=== PATIENT | female | born 1950 | race Two or more races ===

== ENCOUNTER 2021-04-02 07:02 | Day surgery (SDC) | payer MEDICARE ==
[~2021-04-02] VITALS: Ht 156.2 cm; Wt 77.5 kg
[~2021-04-02 07:02] MED LIST: ACETAMINOPHEN 500 MG TABLET PO ONE; ATOR10TA60 PO; CITA10TA4 PO; HYDROmorphone 2 MG/ML VIAL IVP PRN; IV RINGERS,LACTATED 1000ML 1,000 ML IV SCH; LISI10TA16 PO; METF500T16 PO; MORPHINE SULFATE 2 MG/ML INJ. IVP PRN; OLME1TAB23 PO; PROCHLORPERAZINE 10 MG/2 ML VIAL. IVP PRN; ceFAZolin SODIUM IV Push 1 GM VIAL. IVP ONE; fentaNYL PF VIAL 100 MCG/2 ML VIAL IVP PRN; vitamin D
[2021-04-02] MEDS ORDERED: INSULIN LISPRO 100 UNIT/ML 3ML VIAL for OP,RR ONLY. SQ PRN (07:15)
[2021-04-02 07:34] VITALS: BP 182/77
[2021-04-02] MEDS ORDERED: fentaNYL PF VIAL 100 MCG/2 ML VIAL ONE ×2 (08:18→10:22)
[2021-04-02] MEDS ORDERED: ROCURONIUM 50 MG/5 ML VIAL. ONE (08:18)
[2021-04-02] MEDS ORDERED: MINERAL OIL for SURGERY 10 ML VIAL. MC ONE (08:49)
[2021-04-02] MEDS ORDERED: BUPIVACAINE-EPI 0.25%-1:200000 MPF 30 ML VIAL. ONE (08:49)
[2021-04-02] MEDS ORDERED: NEOSTIGMINE METHYLSULFATE 5 MG/5 ML SYRINGE. ONE (09:22)
[2021-04-02] MEDS ORDERED: GLYCOPYRROLATE 1 MG/5 ML VIAL. ONE (09:22)
[2021-04-02] MEDS ORDERED: LIDOCAINE 2% PF 5 ML VIAL. ONE (09:23)
[2021-04-02] MEDS ORDERED: PROPOFOL 10 MG/ML (20ML) VIAL. IV ONE (09:23)
[2021-04-02] MEDS ORDERED: SEVOFLURANE 61 TO 120 MINUTES. IH ONE (09:23)
[2021-04-02] MEDS ORDERED: ONDANSETRON PF 4 MG/2 ML VIAL. ONE (09:23)
[2021-04-02] MEDS ORDERED: DEXAMETHASONE SOD PHOS 4 MG/ML VIAL ONE (09:23)
--- NOTE | 2021-04-02 10:05 | PDOC4 ---
Operative Note Operative Note Date: April 02, 2021 at 1001 Preoperative diagnosis: Incarcerated ventral hernia Postoperative diagnosis: Same Procedure: Robotic assisted laparoscopic ventral hernia repair with mesh Surgeon: Roman Specimen: None Dictation: Patient is a 70-year-old female who had a tubal ligation incision just below the umbilicus and has subsequently developed a hernia with incarcerated omentum. The procedure of robotic assisted laparoscopic ventral hernia repair with mesh was explained to the patient detail risk benefits were also discussed including bleeding infection injury to intra-abdominal contents possible necessitating further open operations alternatives to this procedure also discussed with the patient who seemed to understand and gave both verbal and written consent to have the procedure performed. Patient was taken to the operating room placed in supine position general anesthesia was initiated once patient was sleeping intubated her abdomen was prepped and draped usual sterile fashion using ChloraPrep. Area in the left upper quadrant was injected with quarter percent Marcaine with epinephrine incision was made 11 blade scalpel and a 5 mm Visiport was placed under direct visualization into the abdomen and pneumoperitoneum was achieved. 5 mm scope was placed within the abdomen which was inspected was noted there was quite a few adhesions to the anterior abdominal wall as well as incarcerated omentum within the hernia defect. A 8 mm da Diomedes port was placed in the left midabdomen and an 8 mm da Diomedes ports placed in the left lower abdomen the 5 mm Visiport was changed out for 8 mm da Diomedes port. The da Diomedes robot was brought and docked all port sites surgeon went to the robotic console using a grasper and Endo Desmond scissors the adhesions were taken down on the anterior abdominal wall up to the hernia defect. The hernia contents were reduced. The hernia defect was then closed with a running 2 OV lock nonabsorbable suture. Bard ventral light ST mesh was then placed over the defect this was sewn into place with a running 2 OV lock absorbable suture circumferentially. Sutures removed from the abdomen the pneumoperitoneum was reduced all ports were removed the da Diomedes robot undocked. All port sites were closed with 4 subcuticular Monocryl Mastisol Steri-Strips and island dressings were applied. Patient was awakened and extubated in the operating room taken to recovery in stable condition all sponge instrument needle counts listed as correct estimated blood loss 10 mL. FINN IYER MD Apr 02, 2021 10:05
[2021-04-02] MEDS ORDERED: OXYC-325 PO (10:07)
--- NOTE | 2021-04-02 10:08 | DISCH ---
DISCHARGE INSTRUCTIONS Condition on Discharge Condition on Discharge: Stable Activity After Discharge Activity Instructions for Disc: Avoid exertion Other activity instructions: No lifting more than 20 pounds for 2 weeks Diet after Discharge Diet after Discharge: Regular Wound Incision Care Other wound/incision instructi: Angelia shower in 24 hours Contacting the [facility] after DC Call your doctor for: If your condition worsens Follow-Up Follow up with: Dr. Iyer in 2 weeks FINN IYER MD Apr 02, 2021 10:08
[2021-04-02] MEDS: fentaNYL PF VIAL 100 MCG/2 ML VIAL IVP PRN ×2 (10:27→11:11)
[2021-04-02 11:15] VITALS: BP 110/56
[2021-04-02] MEDS ORDERED: oxyCODONE/APAP 5/325 1 TAB TABLET PO ONE (11:15)
== END 2021-04-02 11:50 | disposition home or self-care (01) ==
LOC: SURG 07:02
PROVIDERS: ATTEND Surgery
DX: K43.6 Other and unspecified ventral hernia with obstruction, without gangrene (principal); K66.0 Peritoneal adhesions (postprocedural) (postinfection); I10 Essential (primary) hypertension; E78.00 Pure hypercholesterolemia, unspecified; E66.9 Obesity, unspecified; E11.9 Type 2 diabetes mellitus without complications; M19.90 Unspecified osteoarthritis, unspecified site; F32.9 Major depressive disorder, single episode, unspecified; Z79.84 Long term (current) use of oral hypoglycemic drugs; Z79.899 Other long term (current) drug therapy; Z98.890 Other specified postprocedural states
CPT/HCPCS: 49653; 82962; A4364; A4930; A6219; C1781; J0690; J1100; J2405; J2704; J2710; J3010; J3490; A4657